=== PATIENT | male | born 1950 | race Caucasian/White ===

== ENCOUNTER 2022-10-09 11:54 | Observation (INO) | payer MEDICARE ==
[2022-10-09] MEDS ORDERED: SODIUM CHLORIDE 0.9% 1,000 ML IV STA (12:28)
--- NOTE | 2022-10-09 12:33 | ED ---
Dizziness HPI - General Chief Complaint: Dizziness Stated Complaint: dizzy Time Seen by Provider: 10/09/22 12:10 Source: patient, family, RN notes reviewed Mode of arrival: ambulatory Limitations: language barrier - History of Present Illness Initial Comments: 72-year-old male with a history of heart disease who is here with his family who act as an certified court/medical interpreter. The patient complains of sudden onset of dizziness around 11 PM today while working at his [employer]. He states is better now but still there somewhat. He also complains of a occipital headache and some neck pain. No trauma reported no fevers chills nausea vomiting sweats no focal weakness. Patient's had no history of previous neurological pathology. Additionally 6 days ago the patient had another episode similar to this which lasted briefly. He also had another episode while sitting in a chair. He did not seem to be related to eye movement overt head movement. At that time also no focal deficits reported. Patient does have a history of glaucoma that is being treated currently. MD Complaint: dizziness, lightheadedness - Related Data Allergies Allergy/AdvReac Type Severity Reaction Status Date / Time No Known Allergies Allergy Verified 10/09/22 12:09 Review of Systems ROS Statement: Those systems with pertinent positive or pertinent negative responses have been documented in the HPI. ROS Other: All systems not noted in ROS Statement are negative. Past Medical History Past Medical History: Coronary Artery Disease (CAD), Diabetes Mellitus History of Any Multi-Drug Resistant Organisms: None Reported Past Surgical History: Orthopedic Surgery Additional Past Surgical History / Comment(s): lt knee, nephrectomy Past Psychological History: No Psychological Hx Reported Smoking Status: Never smoker Past Alcohol Use History: None Reported Past Drug Use History: None Reported General Exam - General Exam Comments Initial Comments: This is a well-developed well-nourished awake alert oriented 4 male Limitations: language barrier General appearance: alert, in no apparent distress Head exam: Present: atraumatic, normocephalic, normal inspection Eye exam: Present: normal appearance, PERRL, EOMI. Absent: scleral icterus, conjunctival injection, periorbital swelling ENT exam: Present: normal exam, mucous membranes moist Neck exam: Present: normal inspection, full ROM, other (No stridor JVD or bruits). Absent: tenderness, meningismus, lymphadenopathy Respiratory exam: Present: normal lung sounds bilaterally. Absent: respiratory distress, wheezes, rales, rhonchi, stridor Cardiovascular Exam: Present: regular rate, normal rhythm, normal heart sounds. Absent: systolic murmur, diastolic murmur, rubs, gallop, clicks GI/Abdominal exam: Present: soft, normal bowel sounds. Absent: distended, tenderness, guarding, rebound, rigid, bruit, pulsatile mass Extremities exam: Present: normal inspection, full ROM, normal capillary refill. Absent: tenderness, pedal edema, joint swelling, calf tenderness Back exam: Present: normal inspection Neurological exam: Present: alert, oriented X3, CN II-XII intact Psychiatric exam: Present: normal affect, normal mood Skin exam: Present: warm, dry, intact, normal color. Absent: rash Course Vital Signs 10/09/22 10/09/22 10/09/22 12:05 13:18 13:20 Temperature 97.9 F 98.2 F Pulse Rate 68 69 69 Respiratory 20 12 16 Rate Blood Pressure 126/76 131/91 O2 Sat by Pulse 99 95 Oximetry 10/09/22 10/09/22 10/09/22 13:30 14:00 14:30 Temperature Pulse Rate 67 67 66 Respiratory 12 16 16 Rate Blood Pressure 131/91 134/82 130/87 O2 Sat by Pulse 95 94 L 95 Oximetry 10/09/22 10/09/22 10/09/22 15:00 15:30 16:00 Temperature Pulse Rate 66 66 64 Respiratory 16 10 L 12 Rate Blood Pressure 120/85 128/87 125/95 O2 Sat by Pulse 96 97 97 Oximetry 10/09/22 16:30 Temperature 98.6 F Pulse Rate 63 Respiratory 12 Rate Blood Pressure 140/106 O2 Sat by Pulse 96 Oximetry EKG Findings - EKG Results: EKG: interpreted by ERMD (EKG interpreted by me normal sinus rhythm a 67 MS interval 209 QRS duration 101 QT/QTC 401/416 areas this is a normal-appearing EKG.) Medical Decision Making - Medical Decision Making I did a long discussion with the patient family regarding findings also Dr. Rey the patient be admitted for evaluation of dizziness. Probably will be consulted.Was pt. sent in by a medical professional or institution (, PA, HANDBAG STITCHER, urgent care, hospital, or long-term...) When possible be specific @ -No Did you speak to anyone other than the patient for history (EMS, parent, family, police, friend...)? What history was obtained from this source @ -Family certified court/medical interpreter Did you review nursing and triage notes (agree or disagree)? Why? @ -I reviewed and agree with nursing and triage notes Were old charts reviewed (outside hosp., previous admission, EMS record, old EKG, old radiological studies, urgent care reports/EKG's, long-term records)? Report findings @ -Previous admission old charts were reviewed Differential Diagnosis (chest pain, altered mental status, abdominal pain women, abdominal pain men, vaginal bleeding, weakness, fever, dyspnea, syncope, headache, dizziness, GI bleed, back pain, seizure, CVA, palpatations, mental health, musculoskeletal)? @ -Dizziness, TIA, stroke, headache EKG interpreted by me (3pts min.). @ -As above X-rays interpreted by me (1pt min.). @ -As above CT interpreted by me (1pt min.). @ -As above U/S interpreted by me (1pt. min.). @ -None done What testing was considered but not performed or refused? (CT, X-rays, U/S, labs)? Why? @ -None What meds were considered but not given or refused? Why? @ -None Did you discuss the management of the patient with other professionals (professionals i.e. , PA, HANDBAG STITCHER, lab, RT, psych nurse, nursing home social worker, computer support specialist instructor, teacher, chief resource officer, rn field case manager)? Give summary @ -Dr. Rey] Was smoking cessation discussed for >3mins.? @ -No Was critical care preformed (if so, how long)? @ -No Were there social determinants of health that impacted care today? How? (Homelessness, low income, unemployed, alcoholism, drug addiction, transport ation, low edu. Level, literacy, decrease access to med. care, shelter, rehab)? @ -No Was there de-escalation of care discussed even if they declined (Discuss DNR or withdrawal of care, Hospice)? DNR status @ -No What co-morbidities impacted this encounter? (DM, HTN, Smoking, COPD, CAD, Cancer, CVA, ARF, Chemo, Hep., AIDS, mental health diagnosis, sleep apnea, morbid obesity)? @ -Diabetes, coronary artery disease, history of nephrectomy Was patient admitted / discharged? Hospital course, mention meds given and route, prescriptions, significant lab abnormalities, going to OR and other pertinent info. @ -hospital course: The patient was admitted for inpatient evaluation treatment of persistent episodic dizziness with neurological consultation to be performed Undiagnosed new problem with uncertain prognosis? @ -No Drug Therapy requiring intensive monitoring for toxicity (Heparin, Nitro, Insulin, Cardizem)? @ -No Were any procedures done? @ -No Diagnosis/symptom? @ -Dizziness Acute, or Chronic, or Acute on Chronic? @ -Acute Uncomplicated (without systemic symptoms) or Complicated (systemic symptoms)? @ -default Side effects of treatment? @ -No Exacerbation, Progression, or Severe Exacerbation? @ -No Poses a threat to life or bodily function? How? (Chest pain, [place], [place], pneumonia, PE, COPD, DKA, ARF, appy, cholecystitis, CVA, Diverticulitis, Homicidal, Suicidal, threat to staff... and all critical care pts) @ -S, dizziness have not fully evaluated - Lab Data Result diagrams: 10/09/22 12:48 10/09/22 12:48 Lab Results 10/09/22 10/09/22 10/09/22 Range/Units 12:48 12:48 12:48 WBC 5.2 (3.8-10.6) k/uL RBC 4.47 (4.30-5.90) m/uL Hgb 14.3 (13.0-17.5) gm/dL Hct 42.0 (39.0-53.0) % MCV 93.9 (80.0-100.0) fL MCH 32.0 (25.0-35.0) pg MCHC 34.1 (31.0-37.0) g/dL RDW 12.4 (11.5-15.5) % Plt Count 114 L (150-450) k/uL MPV 10.6 Neutrophils % 68 % Lymphocytes % 21 % Monocytes % 6 % Eosinophils % 4 % Basophils % 0 % Neutrophils # 3.6 (1.3-7.7) k/uL Lymphocytes # 1.1 (1.0-4.8) k/uL Monocytes # 0.3 (0-1.0) k/uL Eosinophils # 0.2 (0-0.7) k/uL Basophils # 0.0 (0-0.2) k/uL Sodium 139 (137-145) mmol/L Potassium 3.9 (3.5-5.1) mmol/L Chloride 106 (98-107) mmol/L Carbon Dioxide 25 (22-30) mmol/L Anion Gap 8 mmol/L BUN 29 H (9-20) mg/dL Creatinine 1.03 (0.66-1.25) mg/dL Est GFR (CKD-EPI)AfAm 84 (>60 ml/min/1.73 sqM) Est GFR (CKD-EPI)NonAf 73 (>60 ml/min/1.73 sqM) Glucose 121 H (74-99) mg/dL Calcium 8.7 (8.4-10.2) mg/dL Magnesium 1.9 (1.6-2.3) mg/dL Total Bilirubin 0.7 (0.2-1.3) mg/dL AST 24 (17-59) U/L ALT 32 (4-49) U/L Alkaline Phosphatase 56 (38-126) U/L Creatine Kinase 159 (55-170) U/L Troponin I (0.000-0.034) ng/mL Total Protein 7.0 (6.3-8.2) g/dL Albumin 4.1 (3.5-5.0) g/dL TSH 1.100 (0.465-4.680) mIU/L Urine Color Light Yellow Urine Appearance Clear (Clear) Urine pH 5.5 (5.0-8.0) Ur Specific [place] 1.023 (1.001-1.035) Urine Protein Negative (Negative) Urine Glucose (UA) 4+ H (Negative) Urine Ketones Negative (Negative) Urine Blood Negative (Negative) Urine Nitrite Negative (Negative) Urine Bilirubin Negative (Negative) Urine Urobilinogen <2.0 (<2.0) mg/dL Ur Leukocyte Esterase Negative (Negative) 10/09/22 Range/Units 12:48 WBC (3.8-10.6) k/uL RBC (4.30-5.90) m/uL Hgb (13.0-17.5) gm/dL Hct (39.0-53.0) % MCV (80.0-100.0) fL MCH (25.0-35.0) pg MCHC (31.0-37.0) g/dL RDW (11.5-15.5) % Plt Count (150-450) k/uL MPV Neutrophils % % Lymphocytes % % Monocytes % % Eosinophils % % Basophils % % Neutrophils # (1.3-7.7) k/uL Lymphocytes # (1.0-4.8) k/uL Monocytes # (0-1.0) k/uL Eosinophils # (0-0.7) k/uL Basophils # (0-0.2) k/uL Sodium (137-145) mmol/L Potassium (3.5-5.1) mmol/L Chloride (98-107) mmol/L Carbon Dioxide (22-30) mmol/L Anion Gap mmol/L BUN (9-20) mg/dL Creatinine (0.66-1.25) mg/dL Est GFR (CKD-EPI)AfAm (>60 ml/min/1.73 sqM) Est GFR (CKD-EPI)NonAf (>60 ml/min/1.73 sqM) Glucose (74-99) mg/dL Calcium (8.4-10.2) mg/dL Magnesium (1.6-2.3) mg/dL Total Bilirubin (0.2-1.3) mg/dL AST (17-59) U/L ALT (4-49) U/L Alkaline Phosphatase (38-126) U/L Creatine Kinase (55-170) U/L Troponin I <0.012 (0.000-0.034) ng/mL Total Protein (6.3-8.2) g/dL Albumin (3.5-5.0) g/dL TSH (0.465-4.680) mIU/L Urine Color Urine Appearance (Clear) Urine pH (5.0-8.0) Ur Specific [place] (1.001-1.035) Urine Protein (Negative) Urine Glucose (UA) (Negative) Urine Ketones (Negative) Urine Blood (Negative) Urine Nitrite (Negative) Urine Bilirubin (Negative) Urine Urobilinogen (<2.0) mg/dL Ur Leukocyte Esterase (Negative) - Radiology Data Interpreted by me: I did interpret the imaging including CAT scan of the brain and x-rays disease seen. Disposition Clinical Impression: Dizziness Disposition: ADMITTED IP TO THIS [facility] Condition: Stable Referrals: Gabino Rey MD [Primary Care Provider] - 1-2 days Decision Date: 10/09/22 Decision Time: 15:15
[2022-10-09 13:09] LABS: Basophils % (A) 0 %; Eosinophils # (A) 0.2 k/uL (0-0.7); Eosinophils % (A) 4 %; HGB 14.3 gm/dL (13.0-17.5); Lymphocytes # (A) 1.1 k/uL (1.0-4.8); Lymphocytes % (A) 21 %; MCHC 34.1 g/dL (31.0-37.0); MCV 93.9 fL (80.0-100.0); Mean Platelet Volume 10.6; Monocytes # (A) 0.3 k/uL (0-1.0); Monocytes % (A) 6 %; Neutrophils # (A) 3.6 k/uL (1.3-7.7); Neutrophils % (A) 68 %; Platelet Count 114 k/uL (150-450); RBC 4.47 m/uL (4.30-5.90); RDW 12.4 % (11.5-15.5); WBC 5.2 k/uL (3.8-10.6)
[2022-10-09 13:14] LABS: ALT 32 U/L (4-49); AST 24 U/L (17-59); African American GFR (CKD) 84 (>60 ml/min/1.73 sqM); Albumin 4.1 g/dL (3.5-5.0); Alkaline Phosphatase 56 U/L (38-126); Anion Gap 8 mmol/L; Blood Urea Nitrogen 29 mg/dL (9-20); Calcium 8.7 mg/dL (8.4-10.2); Carbon Dioxide 25 mmol/L (22-30); Chloride 106 mmol/L (98-107); Creatine Kinase 159 U/L (55-170); Glucose 121 mg/dL (74-99); Magnesium 1.9 mg/dL (1.6-2.3); Non-African American GFR(CKD) 73 (>60 ml/min/1.73 sqM); Potassium 3.9 mmol/L (3.5-5.1); Sodium 139 mmol/L (137-145); Total Bilirubin 0.7 mg/dL (0.2-1.3)
[2022-10-09 13:46] LABS: Appearance,Urine Clear (Clear); Bilirubin,Urine Negative (Negative); Blood,Urine Negative (Negative); Color,Urine Light Yellow; Glucose,Urine (UA) 4+ (Negative); Ketones,Urine Negative (Negative); Leukocyte Esterase,Urine Negative (Negative); Nitrite,Urine Negative (Negative); PH, Urine 5.5 (5.0-8.0); Protein,Urine Negative (Negative); Specific Gravity,Urine 1.023 (1.001-1.035); Urobilinogen,Urine <2.0 mg/dL (<2.0)
--- NOTE | 2022-10-09 14:11 | XR ---
EXAMINATION TYPE: XR chest 2V DATE OF EXAM: 10/09/2022 COMPARISON: None INDICATION: Dizziness syncope TECHNIQUE: Frontal and lateral views of the chest are obtained. FINDINGS: The heart size is normal. The pulmonary vasculature is normal. The lungs are clear. IMPRESSION: 1. No acute pulmonary process.
--- NOTE | 2022-10-09 14:18 | CT ---
EXAMINATION TYPE: CT brain wo con DATE OF EXAM: 10/09/2022 COMPARISON: None HISTORY: ams CT DLP: 1091.9 mGycm Automated exposure control for dose reduction was used. Ventricles have normal size. There is no mass effect or midline shift. No sign of intracranial hemorr solis. The calvarium is intact. There is normal aeration of the mastoid sinuses. IMPRESSION: Negative unenhanced head CT scan.
[2022-10-09] MEDS ORDERED: ACETAMINOPHEN TAB 325 MG TAB PO PRN (17:11)
[2022-10-09] MEDS: SODIUM CHLORIDE 0.9% 1,000 ML IV SCH (20:19)
[2022-10-09 20:30] LABS: Glucose,Whole Blood 204 mg/dL (70-110)
--- NOTE | 2022-10-09 22:20 | HP ---
HISTORY AND PHYSICAL He was in the emergency room. CHIEF COMPLAINT: Mental status changes and near syncope. HISTORY OF PRESENT ILLNESS: First known admission for this 72-year-old gentleman who has been coming to the office recently. He has mild hypertension. He does not speak Iranian well. He apparently experienced a slight headache and then became presyncopal. He had same type of the pain about a week ago. In the emergency room, all of his studies were negative including his vital signs, CT of the brain, EKG, and blood work. He is admitted for observation. Review of systems, past medical history, family history and personal and social histories are all otherwise unobtainable or unremarkable. He does not smoke. PHYSICAL EXAMINATION: VITAL SIGNS: Blood pressure 165/98 with a pulse of 80, respirations of 26, and he is afebrile. GENERAL: He appeared to be well developed, well nourished, in no acute distress. SKIN: Color is normal. Skin is warm and dry. LYMPHATICS: Lymph nodes are not enlarged. HEENT: Head, ears, eyes, nose, mouth and throat were normal. NECK: Veins not distended. Carotids normal. There are no bruits. CHEST: Clear to auscultation and percussion. CARDIAC: Normal sinus rhythm and no murmurs or extra sounds. ABDOMEN: Slightly protuberant, soft and nontender without any visceromegaly or masses. Bowel sounds are present. EXTREMITIES: Normal. NEUROLOGIC: He is intact. IMPRESSION: 1. Near-syncopal episode, etiology unknown. 2. Hypertension. 3. History of having only 1 kidney. 4. Headache. PLAN: 1. Bedrest. 2. IV fluids. 3. Telemetry. 4. Frequent monitoring of his neurologic status and vital signs. 5. Neurology consult. 6. Consider CTA of the neck and head pending recommendations of Neurology. MMODL / IJN: [id number] /
[2022-10-10 07:56] LABS: Glucose,Whole Blood 77 mg/dL (70-110)
[2022-10-10 08:34] VITALS: RESP 16
[2022-10-10] MEDS ORDERED: NON FORMULARY DRUG (Insulin Glargine/Lixisenatide [Soliqua 100 Unit-33 Mcg/Ml Pen] 3 ML In SQ SCH (09:00)
[2022-10-10] MEDS: METOPROLOL SUCCINATE (ER) 50 MG TAB.ER.24H PO SCH ×2 (09:18→20:40)
[2022-10-10] MEDS: INSULIN DETEMIR (LEVEMIR) 100 UNIT/ML SYR SQ SCH (09:18)
[2022-10-10] MEDS: metFORMIN 500 MG TAB PO SCH (09:18)
[2022-10-10] MEDS: DAPAGLIFLOZIN PROPANEDIOL 10 MG TABLET PO SCH (09:18)
[2022-10-10] MEDS: DILTIAZEM CD 120 MG CAP.ER.24H PO SCH (09:18)
[2022-10-10] MEDS: BRIMONIDINE TARTRATE 0.2% DROPS 5 ML BTL BOTH EYES SCH ×2 (09:19→20:39)
[2022-10-10] MEDS: DORZOLAMIDE HCL 2% DROPS 10 ML BTL BOTH EYES SCH ×2 (09:19→20:39)
[2022-10-10 09:48] LABS: Chol/HDL Ratio 2.93 Ratio; LDL Cholesterol,Calculated 78.6 mg/dL (0.0-131.0)
[2022-10-10 12:43] LABS: Glucose,Whole Blood 103 mg/dL (70-110)
[2022-10-10] MEDS: INSULIN ASPART (NovoLOG) 100 UNIT/ML VIAL SQ SCH ×2 (13:13→17:27)
--- NOTE | 2022-10-10 14:43 | US ---
EXAMINATION TYPE: US carotid duplex BILAT DATE OF EXAM: 10/10/2022 COMPARISON: NONE CLINICAL HISTORY: Syncope TECHNIQUE: Carotid duplex ultrasound examination. Indirect Doppler criteria was utilized. FINDINGS: EXAM MEASUREMENTS: RIGHT: Peak Systolic Velocity (PSV) cm/sec ----- Right CCA: 63.9 ----- Right ICA: 50.3 ----- Right ECA: 50.3 ICA/CCA ratio: 0.8 RIGHT: End Diastole cm/sec ----- Right CCA: 7.0 ----- Right ICA: 12.5 ----- Right ECA: 0.0 LEFT: Peak Systolic Velocity (PSV) cm/sec ----- Left CCA: 68.6 ----- Left ICA: 47.0 ----- Left ECA: 37.0 ICA/CCA ratio: 0.7 LEFT: End Diastole cm/sec ----- Left CCA: 7.4 ----- Left ICA: 10.7 ----- Left ECA: 0.00 VERTEBRALS (direction of flow): Right Vertebral: Antegrade Left Vertebral: Antegrade WEB SITE ADMIN NOTES: No significant stenosis seen IMPRESSION: There is antegrade flow in the vertebral arteries. The images and measurement suggests less than 10% stenosis in both internal carotid arteries. Criteria for Assigning % of Stenosis / Diameter reduction (Estimation based on the indirect measurements of the internal carotid artery velocities (ICA PSV). 1. Normal (no stenosis)=ICA PSV < 125 cm/s: ratio < 2.0: ICA EDV<40 cm/s. 2. Less than 50% stenosis=ICA PSV < 125 cm/s: ratio < 2.0: ICA EDV<40 cm/s. 3. 50 to 69% stenosis=ICA PSV of 125 to 230 cm/s: ration 2.0 ? 4.0: ICA EDV 40-100 cm/s. 4. Greater than 70% stenosis to near occlusion= ICA PSV > 230 cm/s: ratio > 4.0: ICA EDV > 100 cm/s. 5. Near occlusion= ICA PSV velocities may be low or undetectable: variable ratio and ICA EDV. 6. Total occlusion=unable to detect flow.
--- NOTE | 2022-10-10 15:00 | P.CNNES ---
History of Present Illness Consult date: 10/10/22 Requesting physician: Win Bone Reason for Consult: Dizziness History of Present Illness: Patient is a 72-year-old male came to the hospital yesterday at 11:54 AM for episodes of dizziness. Patient states that yesterday at 11 AM he was laying in the bed, looking at his cell phone when he felt dizzy which lasted for just a couple seconds. Patient states that last Tuesday, one week ago at 8 AM he was bending down trying to plug his monitor when he became dizzy again lasting for a few seconds. The same day at 2 PM while sitting and watching TV, he had a similar dizzy spell. For the whole week since last Tuesday, he has been feeling little dizzy, but not all the time. He does not have to change his head or body position to be dizzy. He denies vertigo. Patient states that 2 or 3 years ago he had a very transient dizzy spell just like this, but it occurred only once and lasted for "one second". No other episodes of dizziness since then. Patient admits to mild hearing loss but denies any ear pain, tinnitus any pressure in the ears any recent flu or upper respiratory symptoms. Vital signs on arrival blood pressure 126/76, pulse is 68 temperature 97.9. Blood test shows normal CBC, CMP, troponin, CK, TSH, lipid panel with cholesterol 154, LDL 78, UA negative. CT head was reported as negative. I personally reviewed CT head, and there is evidence of an old lacune in the left frontal semiovale region. Visualized paranasal sinuses are clear. External auditory canal is clear on the left, but appears to have some wax buildup on the right. Chest x-ray and EKG are reported as normal. Patient has history of diabetes, also has glaucoma with diabetic retinopathy. Denies any tobacco or alcohol use. Patient denies vertigo or spinning, he feels like "in a shock". Denies palpitations. Review of Systems Constitutional: Denies chills, Denies fever Eyes: bilateral as per HPI (Patient has diabetic retinopathy. Some problem with the vision in the left eye.), denies diplopia, denies pain Ears: bilateral: decreased hearing, deny: ear discharge, earache, tinnitus Ears, nose, mouth and throat: Denies headache, Denies sore throat Cardiovascular: Denies chest pain, Denies shortness of breath Respiratory: Denies cough, Denies excessive sputum Gastrointestinal: Denies abdominal pain, Denies diarrhea, Denies nausea, Denies vomiting Musculoskeletal: Denies gait dysfunction, Denies myalgias Integumentary: Denies pruritus, Denies rash Neurological: Reports as per HPI Psychiatric: Denies anxiety, Denies depression Endocrine: Denies fatigue, Denies weight change Past Medical History Past Medical History: Coronary Artery Disease (CAD), Diabetes Mellitus History of Any Multi-Drug Resistant Organisms: None Reported Past Surgical History: Orthopedic Surgery Additional Past Surgical History / Comment(s): lt knee, nephrectomy left side Past Anesthesia/Blood Transfusion Reactions: No Reported Reaction Past Psychological History: No Psychological Hx Reported Smoking Status: Never smoker Past Alcohol Use History: None Reported Past Drug Use History: None Reported Medications and Allergies Home Medications Medication Instructions Recorded Confirmed Type Atorvastatin [Lipitor] 40 mg PO HS 10/09/22 10/09/22 History Brimonidine Tartrate [Alphagan P 1 drop BOTH EYES BID 10/09/22 10/09/22 History 0.15% Ophth Soln] Diltiazem Cd [Cardizem CD] 120 mg PO DAILY 10/09/22 10/09/22 History Dorzolamide 2% [Trusopt 2%] 1 drop BOTH EYES BID 10/09/22 10/09/22 History Empagliflozin [Jardiance] 25 mg PO DAILY 10/09/22 10/09/22 History Insulin Aspart [Insulin Aspart 10 unit SQ AC-TID 10/09/22 10/09/22 History Flexpen] Insulin Glargine/Lixisenatide 40 units SQ DAILY 10/09/22 10/09/22 History [Soliqua 100 Unit-33 Mcg/ml Pen] Ketoconazole 2% Cream [Nizoral 2%] 1 applic TOPICAL DAILY PRN 10/09/22 10/09/22 History Latanoprost [Latanoprost 0.005%] 1 drop BOTH EYES HS 10/09/22 10/09/22 History Losartan Potassium 100 mg PO HS 10/09/22 10/09/22 History Metoclopramide [Reglan] 5 mg PO HS 10/09/22 10/09/22 History Metoprolol Succinate [Toprol XL] 50 mg PO BID 10/09/22 10/09/22 History Pantoprazole [Protonix] 40 mg PO HS 10/09/22 10/09/22 History Rivaroxaban [Xarelto] 20 mg PO HS 10/09/22 10/09/22 History Timolol 0.5% Ophth Soln [Timoptic 1 drop BOTH EYES BID 10/09/22 10/09/22 History 0.5% Ophth Soln] metFORMIN HCL 1,000 mg PO DAILY 10/09/22 10/09/22 History traZODone HCL [Desyrel] 50 mg PO HS 10/09/22 10/09/22 History Allergies Allergy/AdvReac Type Severity Reaction Status Date / Time No Known Allergies Allergy Verified 10/09/22 17:43 Physical Examination - Vital Signs Vital Signs: Vital Signs Temp Pulse Pulse Resp BP BP Pulse Ox 10/10/22 10:16 95 10/10/22 07:00 98.0 F 60 16 157/84 96 10/10/22 02:00 97.6 F 59 L 18 158/85 98 10/09/22 19:23 97.8 F 66 16 153/81 95 10/09/22 19:00 98.2 F 67 153/85 96 10/09/22 17:35 61 18 143/96 95 10/09/22 16:30 98.6 F 63 16 140/106 96 10/09/22 16:00 64 16 125/95 97 10/09/22 15:30 66 16 128/87 97 10/09/22 15:00 66 16 120/85 96 10/09/22 14:30 66 16 130/87 95 10/09/22 14:00 67 16 134/82 94 L 10/09/22 13:30 67 16 131/91 95 10/09/22 13:20 98.2 F 69 16 131/91 95 10/09/22 13:18 69 16 Intake and Output 10/09/22 10/10/22 10/10/22 22:59 06:59 14:59 Output Total 700 Balance -700 Output: Urine 700 Other: Voiding Method Toilet Toilet Toilet Urinal Urinal Urinal # Voids 1 1 Weight 90.718 kg Patient is an elderly male, very pleasant, in no acute distress. Patient is alert awake oriented to time place and person. Speech and language functions are normal. Patient can name and repeat very well. No aphasia or dysarthria. Attention, concentration and fund of knowledge is adequate. On cranial nerve examination, pupils are equal, round and reacting to light, visual elliott are full on confrontation, with no neglect on double simultaneous stimulation. Extraocular muscles are intact with no nystagmus. Face is symmetric, tongue protrudes to the midline. Palatal elevation and sensation normal, hearing is severely decreased for finger rubbing, but mildly decreased for routine conversation. His shoulder shrug normal, facial sensation normal. On neurologic examination was performed and the eardrums appeared well bilaterally, with no excessive wax or inflammation. On muscle strength testing, there is no pronator drift and the strength is normal in arms and legs distally and proximally. Deep tendon reflexes are symmetric but diminished and plantars downgoing bilaterally. Sensory to touch is equal with no neglect on double simultaneous stimulation. Cerebellar function showed no ataxia for [id number] testing. No dysdiadochokinesia. No ataxia for [id number] testing on either side. Tone and bulk of muscles normal. Gait deferred.. On general examination, there is no carotid bruit or murmur, S1-S2 audible. Chest is clear on consultation. Abdomen is soft nontender. No organomegaly, bowel sounds present. Peripheral pulses are present. No edema. Results - Laboratory Findings CBC and BMP: 10/09/22 12:48 10/09/22 12:48 Abnormal Lab Findings: Abnormal Labs 10/09/22 10/09/22 10/09/22 12:48 12:48 12:48 Plt Count 114 L BUN 29 H Glucose 121 H POC Glucose (mg/dL) Urine Glucose (UA) 4+ H 10/09/22 20:27 Plt Count BUN Glucose POC Glucose (mg/dL) 204 H Urine Glucose (UA) Assessment and Plan Assessment: * Recurrent episodes (4-5 total) of dizziness (not vertigo), lasting for 1-2 seconds. Examination significant for decreased hearing for finger rubbing bilaterally, otherwise nonfocal. Exact cause is uncertain, suspect peripheral vestibular dysfunction. Rule out vascular cause. * Diabetes * CAD * Hamida did retinopathy Plan: * Carotid Doppler * 2-D echo * B12, folate * Patient had a 48-hour Holter monitoring performed for palpitations from 08/26/2022 to 08/28/2022, which only revealed normal sinus rhythm, rare PACs, PVCs. 3 patient activated events corresponding with sinus rhythm. * If above testing comes back normal, then recommend follow-up with ENT specialist as an outpatient. * Patient does have an appointment with Dr. Moralez (neurologist) on 10/12/2022. * Dr. Delano Beckham will resume neurology service in the morning. * Thank you for the consult.
[2022-10-10] MEDS: SODIUM CHLORIDE 0.9% 1,000 ML IV SCH (16:08)
[2022-10-10 17:33] LABS: Glucose,Whole Blood 121 mg/dL (70-110)
[2022-10-10 20:23] LABS: Glucose,Whole Blood 200 mg/dL (70-110)
[2022-10-10] MEDS: TIMOLOL 0.5% OPHTH DROPS 5 ML BTL BOTH EYES SCH (20:39)
[2022-10-10] MEDS ORDERED: LATANOPROST 0.005% OPHTH DROPS 2.5 ML BTL BOTH EYES SCH (21:00)
[2022-10-10] MEDS ORDERED: ATORVASTATIN 40 MG TAB PO SCH (21:00)
[2022-10-10] MEDS ORDERED: RIVAROXABAN 20 MG TAB PO SCH (21:00)
[2022-10-10] MEDS ORDERED: METOCLOPRAMIDE 5 MG TAB PO SCH (21:00)
[2022-10-10] MEDS ORDERED: LOSARTAN 50 MG TAB PO SCH (21:00)
[2022-10-10] MEDS ORDERED: PANTOPRAZOLE 40 MG TABLET PO SCH (21:00)
--- NOTE | 2022-10-11 05:00 | PN ---
PROGRESS NOTE CHIEF COMPLAINT: Syncopal episode. HISTORY OF PRESENT ILLNESS: This gentleman seems to be doing fairly well. He still has a slight headache, but it has improved. He has not been seen by Neurology. He has been in sinus rhythm. Blood pressure elevated slightly, but his home medications were restarted. PHYSICAL EXAMINATION: CHEST: Clear. CARDIAC: Normal. ABDOMEN: Soft, nontender. IMPRESSION: 1. Syncopal episodes. 2. Hypertension. 3. Type 2 diabetes. PLAN: 1. Put patient on telemetry. 2. Carotid duplex imaging. 3. Echocardiogram. 4. Neurology consult. MMODL / IJN: [id number] /
[2022-10-11 05:34] LABS: Glucose,Whole Blood 81 mg/dL (70-110)
[2022-10-11] MEDS: INSULIN ASPART (NovoLOG) 100 UNIT/ML VIAL SQ SCH ×2 (05:34→12:34)
[2022-10-11] MEDS: INSULIN DETEMIR (LEVEMIR) 100 UNIT/ML SYR SQ SCH (05:34)
[2022-10-11 08:53] VITALS: BP 138/78; PULSE 56; TEMP 98.1
[2022-10-11] MEDS: metFORMIN 500 MG TAB PO SCH (08:56)
[2022-10-11] MEDS: DAPAGLIFLOZIN PROPANEDIOL 10 MG TABLET PO SCH (08:56)
[2022-10-11] MEDS: METOPROLOL SUCCINATE (ER) 50 MG TAB.ER.24H PO SCH (08:56)
[2022-10-11] MEDS: DILTIAZEM CD 120 MG CAP.ER.24H PO SCH (08:56)
[2022-10-11] MEDS: TIMOLOL 0.5% OPHTH DROPS 5 ML BTL BOTH EYES SCH (09:01)
[2022-10-11] MEDS: DORZOLAMIDE HCL 2% DROPS 10 ML BTL BOTH EYES SCH (09:02)
[2022-10-11] MEDS: BRIMONIDINE TARTRATE 0.2% DROPS 5 ML BTL BOTH EYES SCH (09:02)
--- NOTE | 2022-10-11 11:04 | P.PN ---
Subjective Progress Note Date: 10/11/22 I'm seeing the patient for the first time during this hospital visit. There is a somewhat of a language barrier since he states that the his dizziness is better today compared to yesterday. He denies of weakness, vomiting. Please refer to Dr. Hill's notes for further details. Objective - Vital Signs Vital signs: Vital Signs Temp 98.1 F 10/11/22 07:00 Pulse 56 L 10/11/22 07:00 Resp 16 10/11/22 07:00 BP 138/78 10/11/22 07:00 Pulse Ox 97 10/11/22 07:58 FiO2 21 10/11/22 07:58 Intake & Output 10/10/22 10/11/22 10/11/22 18:59 06:59 18:59 Intake Total 240 118 Output Total 600 Balance 240 -600 118 Intake: Oral 240 118 Output: Urine 600 Other: Voiding Method Toilet Toilet Urinal Urinal # Voids 2 - Exam GENERAL: The patient is lying in bed and is not in acute distress. NEUROLOGICAL: Somewhat limited because of language barrier. Higher mental function: The patient is awake, alert, oriented to self, place and time. Patient is following simple commands. Cranial nerves: The pupils are round, equal and reactive to light. Visual elliott are full to confrontation throughout. Extraocular movement is intact no nystagmus is noted. F The facial strength is normal throughout. Tongue is midline and moved [id number] without any difficulty. No dysarthria is noted. Shoulder shrug is normal bilaterally. Motor: Gait is normal. The strength is 5 over 5 throughout. Normal tone and bulk. Cerebellum: Normal finger to nose bilaterally. Sensation: Sensation is normal to touch throughout. - Labs CBC & Chem 7: 10/09/22 12:48 10/09/22 12:48 Labs: Abnormal Lab Results - Last 24 Hours (Table) 10/09/22 10/10/22 10/10/22 Range/Units 12:48 17:19 20:21 POC Glucose (mg/dL) 121 H 200 H (70-110) mg/dL Folate 31.10 H (4.40-31.00) ng/mL Assessment and Plan Assessment: * Recurrent episodes (4-5 total) of dizziness (not vertigo), lasting for 1-2 seconds. Examination significant for decreased hearing for finger rubbing bilaterally, otherwise nonfocal. Exact cause is uncertain, suspect peripheral vestibular dysfunction. * Diabetes * CAD * Hamida did retinopathy Plan: * Carotid Doppler: Is reported as there is antegrade flow in the vertebral arteries. The images and measurements suggest less than 10% stenosis in both internal carotid arteries. * 2-D echo: pending. * B12 907, folate 31.1 * Patient had a 48-hour Holter monitoring performed for palpitations from 08/26/2022 to 08/28/2022, which only revealed normal sinus rhythm, rare PACs, PVCs. 3 patient activated events corresponding with sinus rhythm. * If above testing comes back normal, then recommend follow-up with ENT specialist as an outpatient. * Patient does have an appointment with Dr. Moralez (neurologist) on 10/12/2022. Clinically he feels he is doing well. Otherwise, no additional neurological work-up is needed. The plan is discussed with patient and his nurse. Time with Patient: Less than 30
[2022-10-11 11:35] LABS: Glucose,Whole Blood 198 mg/dL (70-110)
--- NOTE | 2022-10-11 13:09 | CA ---
Transthoracic Echo Report Name: Honorio Stewart Age: 72 Gender: M : 1950 Exam Date: 10/11/2022 10:49 Exam Location: [facility] Ht (in): 70 Wt (lb): 200 Ordering Physician: Nadine Hill MD Attending/Referring Phys: Sales Associate Cashier Marshal Doherty RDCS Procedure CPT: Indications: Dizzy spells Cardiac Hx: Technical Quality: Fair Contrast 1: Total Dose (mL): Contrast 2: Total Dose (mL): MEASUREMENTS (Male / Female) Normal Values 2D ECHO LV Diastolic Diameter PLAX 4.6 cm 4.2 - 5.9 / 3.9 - 5.3 cm LV Systolic Diameter PLAX 2.7 cm LV Fractional Shortening PLAX 40.7 % IVS Diastolic Thickness 1.3 cm 0.6 - 1.0 / 0.6 - 0.9 cm IVS Systolic Thickness 1.9 cm LVPW Diastolic Thickness 1.4 cm 0.6 - 1.0 / 0.6 - 0.9 cm LVPW Systolic Thickness 1.8 cm LV Relative Wall Thickness 0.6 RV Internal Dim ED PLAX 2.9 cm LVOT Diameter 2.4 cm LA Systolic Diameter LX 3.8 cm 3.0 - 4.0 / 2.7 - 3.8 cm MV Area Planimetry 13.6 cm??? LV Diastolic Volume MOD BP 107.3 cm??? 67 - 155 / 56 - 104 cm??? LV Systolic Volume MOD BP 40.0 cm??? 22 - 58 / 19 - 49 cm??? LV Ejection Fraction MOD BP 62.7 % >= 55 % LV Stroke Volume MOD BP 67.3 cm??? LV Diastolic Volume MOD 4C 102.1 cm??? LV Systolic Volume MOD 4C 39.2 cm??? LV Ejection Fraction MOD 4C 61.6 % LV Stroke Volume MOD 4C 62.9 cm??? LV Diastolic Length 4C 8.1 cm LV Systolic Length 4C 7.1 cm LV Diastolic Volume MOD 2C 106.6 cm??? LV Systolic Volume MOD 2C 40.9 cm??? LV Ejection Fraction MOD 2C 61.6 % LV Stroke Volume MOD 2C 65.7 cm??? LV Diastolic Length 2C 8.6 cm LV Systolic Length 2C 7.1 cm Ascending Aorta Diameter 3.0 cm M-MODE Aortic Root Diameter MM 3.3 cm LA Systolic Diameter MM 4.1 cm LA Ao Ratio MM 1.3 MV E Point Septal Separation 1.0 cm AV Cusp Separation MM 1.8 cm DOPPLER AV Peak Velocity 85.9 cm/s AV Peak Gradient 3.0 mmHg MV Deceleration [place] 171.3 cm/s??? Mitral E Point Velocity 60.4 cm/s Mitral A Point Velocity 58.4 cm/s Mitral E to A Ratio 1.0 MV Deceleration Time 352.4 ms MV E' Velocity 4.9 cm/s Mitral E to MV E' Ratio 12.4 TR Peak Velocity 225.3 cm/s TR Peak Gradient 20.3 mmHg Right Ventricular Systolic Press 28.3 mmHg PV Peak Velocity 79.2 cm/s PV Peak Gradient 2.5 mmHg RVOT Diameter 2.9 cm FINDINGS Left Ventricle Left ventricular ejection fraction is estimated at 60-65 %. Mild concentric left ventricular hypertrophy. Grade 2 diastolic dysfunction. Normal basal systolic function. Right Ventricle Normal right ventricular size and function. RVSP- 28 mm Hg. Right Atrium Mild right atrial dilatation. Left Atrium Normal left atrial size. Mitral Valve Mitral valve thickened. Aortic Valve Trileaflet aortic valve. Diffuse thickening (sclerosis) of the aortic valve cusps without reduced excursion. Tricuspid Valve Mild tricuspid regurgitation. Pulmonic Valve Structurally normal pulmonic valve. Pericardium Normal pericardium. No pericardial effusion. Aorta Normal size aortic root and proximal ascending aorta. CONCLUSIONS Left ventricular ejection fraction 60-65% Mild LVH Mild tricuspid regurgitation No pericardial effusion Previewed by: Dr. Steven Carrillo DO (Electronically Signed) Final Date: 11 October 2022 13:08
--- NOTE | 2022-10-12 07:36 | DS ---
DISCHARGE SUMMARY CHIEF COMPLAINT: Syncopal episode. HISTORY OF PRESENT ILLNESS AND PHYSICAL EXAM: Details of this man's history and physical can be found in the initial workup. LABORATORY STUDIES: While he was in the hospital, he had laboratory studies, details of which can be found in the laboratory section of his chart. COURSE IN THE HOSPITAL: After admission, he was placed on bedrest, started on intravenous fluid and telemetry. His blood pressure eden slightly, but then he was placed back on his usual home medications and they came under good control. While he was in the hospital, he had no chest pain, arrhythmias, neurologic deficits, etc. He had no further dizziness. Carotid studies were ordered as well as an echocardiogram. Carotid report was back and was normal. He is doing well. It was felt that he could be discharged on the and he will go home on his usual activity and regular diet. His medications will be the same. He will be seen in the office in several days. If he has any further signs or symptoms of dizziness or syncope, we will extend his workup. FINAL DIAGNOSES: 1. Near-syncope with dizziness, etiology unknown. 2. Hypertension. 3. Diabetes mellitus. OPERATIONS: None. CONSULTATION: None. He is improved. MMODL / IJN: [id number] /
== END 2022-10-11 12:56 | disposition home or self-care (01) ==
LOC: EC 11:54 → 6NMEDSUR 16:58
PROVIDERS: ADMIT Family Medicine; ATTEND Family Medicine
DX: R55 Syncope and collapse (principal); I10 Essential (primary) hypertension; E11.39 Type 2 diabetes mellitus with other diabetic ophthalmic complication; H42 Glaucoma in diseases classified elsewhere; E11.319 Type 2 diabetes mellitus with unspecified diabetic retinopathy without macular edema; I25.10 Atherosclerotic heart disease of native coronary artery without angina pectoris; I07.1 Rheumatic tricuspid insufficiency; Z90.5 Acquired absence of kidney; Z79.899 Other long term (current) drug therapy; Z79.84 Long term (current) use of oral hypoglycemic drugs; Z79.4 Long term (current) use of insulin; Z79.01 Long term (current) use of anticoagulants
CPT/HCPCS: 99285; 36415; 94760 ×2; 93005; 93306; 97161; 80061; 80053; 84443; 82607; 82550; 82746; 83735; 84484; 85025; 81003; 71046; 93880; 70450; G0378 ×3

== ENCOUNTER → 2022-11-18 | Outpatient (CLI) | payer MEDICARE ==
--- NOTE | 2022-11-18 15:23 | CT ---
EXAMINATION TYPE: CT angio head neck CT DLP: 1526 mGycm, Automated exposure control for dose reduction was used. DATE OF EXAM: 11/18/2022 2:47 PM COMPARISON: Ultrasound 10/10/2022. CLINICAL INDICATION:Male, 72 years old with history of R55 SYNCOPE AND COLLAPSE R42 DIZZINESS AND GID DINE; TECHNIQUE: Axially acquired helical CT angiogram of the head and neck was obtained with contrast. Axi al images are supplemented with 3D reconstructions [facility] criteria used. Contrast used: 65 cc of Isovue-370 Oral contrast used: None. FINDINGS: CTA HEAD: No evidence of acute intracranial hemorrhage, mass effect, or midline shift. The ventricles, sulci, a nd cisterns are unremarkable. The visualized portions of the internal carotid arteries, middle cerebral arteries, anterior cerebral arteries, and posterior cerebral arteries are patent. The basilar and vertebral arteries are patent. CTA NECK: Right Carotid System: The common carotid artery and external carotid artery are patent. The carotid bifurcation demonstrate s no evidence of hemodynamically significant stenosis. The remaining portions of the internal carotid artery demonstrate normal size without significant narrowing. Left Carotid System: The common carotid artery and external carotid artery are patent. The carotid bifurcation demonstrate s no evidence of hemodynamically significant stenosis. The remaining portions of the internal carotid artery demonstrate normal size without significant narrowing. Vertebral arteries are patent without evidence hemodynamically significant stenosis. There is a three-vessel aortic arch. The origins of the great vessels are patent. No evidence of hemo dynamically significant stenosis. IMPRESSION: 1. No evidence of dissection of the cervical internal carotid arteries or vertebral arteries or any e vidence of significant stenosis at the carotid bifurcations. 2. No evidence of intracranial high-grade stenosis or intracranial aneurysm.
== END | disposition home or self-care (01) ==
LOC: RADCTMAIN 13:01
PROVIDERS: ATTEND Family Medicine
DX: R55 Syncope and collapse (principal); R42 Dizziness and giddiness
CPT/HCPCS: 82565; 84520; 70496; 70498; 36415; Q9967

== ENCOUNTER 2023-01-23 23:01 | Inpatient (IN) | payer MEDICARE ==
[2023-01-23 23:10] VITALS: TEMP 98.2
[2023-01-23] MEDS ORDERED: DILTIAZEM DRIP BOLUS FROM BAG 1 MG SOLN IV ONE (23:36)
[2023-01-23 23:47] LABS: Basophils % (A) 0 %; Eosinophils # (A) 0.2 k/uL (0-0.7); Eosinophils % (A) 4 %; HCT 42.6 % (39.0-53.0); HGB 13.8 gm/dL (13.0-17.5); Lymphocytes # (A) 1.5 k/uL (1.0-4.8); Lymphocytes % (A) 24 %; MCH 31.4 pg (25.0-35.0); MCHC 32.4 g/dL (31.0-37.0); MCV 96.9 fL (80.0-100.0); Mean Platelet Volume 10.7; Monocytes # (A) 0.4 k/uL (0-1.0); Monocytes % (A) 6 %; Neutrophils # (A) 3.8 k/uL (1.3-7.7); Neutrophils % (A) 63 %; Platelet Count 100 k/uL (150-450); RDW 12.7 % (11.5-15.5)
--- NOTE | 2023-01-23 23:57 | XR ---
EXAM: XR Chest, 1 View CLINICAL HISTORY: Dysrhythmia TECHNIQUE: Frontal view of the chest. COMPARISON: 10/09/2022 FINDINGS: Lungs: No focal consolidation. The pulmonary vasculature demonstrates no significant radiographic abnormality. Pleural space: Unremarkable. No pneumothorax. No large pleural effusion. Heart: Unremarkable. No cardiomegaly. Mediastinum: The mediastinal contours are stable with the prominent hilar structures presumed vascular. The trachea is midline. Bones/joints: Hypertrophic osteophyte changes noted involving the thoracic spine. No acute osseous abnormality. IMPRESSION: No acute cardiopulmonary process or significant alteration from the previous examination.
[2023-01-24] LABS: INR 1.2 (<1.2); Partial Thromboplastin Time 33.7 sec (22.0-30.0); Prothrombin Time 12.3 sec (9.0-12.0)
[2023-01-24] MEDS ORDERED: DILTIAZEM 125 MG in SODIUM CHLORIDE 0.9% 100 ML IV SCH ×2
[2023-01-24 00:01] LABS: ALT 35 U/L (4-49); AST 31 U/L (17-59); African American GFR (CKD) 75 (>60 ml/min/1.73 sqM); Albumin 3.9 g/dL (3.5-5.0); Alkaline Phosphatase 62 U/L (38-126); Anion Gap 10 mmol/L; Blood Urea Nitrogen 36 mg/dL (9-20); Calcium 8.7 mg/dL (8.4-10.2); Carbon Dioxide 20 mmol/L (22-30); Chloride 105 mmol/L (98-107); Glucose 257 mg/dL (74-99); Magnesium 1.8 mg/dL (1.6-2.3); Non-African American GFR(CKD) 65 (>60 ml/min/1.73 sqM); Sodium 135 mmol/L (137-145); Total Bilirubin 0.4 mg/dL (0.2-1.3); Total Protein 6.7 g/dL (6.3-8.2)
[2023-01-24] MEDS ORDERED: INSULIN REGULAR 100 UNIT/ML VIAL (IV) SQ STA (00:43)
[2023-01-24] MEDS ORDERED: NITROGLYCERIN SL TABS 0.4 MG TAB SUBLINGUAL PRN (00:44)
[2023-01-24] MEDS ORDERED: SODIUM CHLORIDE 0.9% 1,000 ML IV SCH (00:45)
--- NOTE | 2023-01-24 01:54 | ED ---
Arrhythmia/Palpitations HPI - General Chief Complaint: Arrhythmia/Palpitations Stated Complaint: Tachycardia Time Seen by Provider: 01/23/23 23:36 Source: patient Mode of arrival: ambulatory Limitations: language barrier - History of Present Illness Initial Comments: This patient is 72-year-old man who presents to have evaluation for rapid heartbeat. The patient gives history which is aided by his son has primary language is Vincentian. The patient does appear to have fair grasp of Marshallese. He is denying chest pain, diaphoresis, dyspnea. No nausea or vomiting. Patient denies history of atrial fibrillation and I do not find past record of atrial fibrillation however he does take Xarelto. Complaint: rapid heart beat Onset/Timin -: hour(s) Context: occurred during rest Associated Symptoms: denies other symptoms - Related Data Home Medications Medication Instructions Recorded Confirmed Atorvastatin [Lipitor] 40 mg PO HS 10/09/22 01/24/23 Brimonidine Tartrate [Alphagan P 1 drop BOTH EYES BID 10/09/22 01/24/23 0.15% Ophth Soln] Diltiazem Cd [Cardizem CD] 120 mg PO DAILY 10/09/22 01/24/23 Dorzolamide 2% [Trusopt 2%] 1 drop BOTH EYES BID 10/09/22 01/24/23 Empagliflozin [Jardiance] 25 mg PO DAILY 10/09/22 01/24/23 Insulin Aspart [Insulin Aspart 10 unit SQ AC-TID 10/09/22 01/24/23 Flexpen] Insulin Glargine/Lixisenatide 40 units SQ DAILY 10/09/22 01/24/23 [Soliqua 100 Unit-33 Mcg/ml Pen] Ketoconazole 2% Cream [Nizoral 2%] 1 applic TOPICAL DAILY PRN 10/09/22 01/24/23 Latanoprost [Latanoprost 0.005%] 1 drop BOTH EYES HS 10/09/22 01/24/23 Metoclopramide [Reglan] 5 mg PO HS 10/09/22 01/24/23 Pantoprazole [Protonix] 40 mg PO HS 10/09/22 01/24/23 Rivaroxaban [Xarelto] 20 mg PO HS 10/09/22 01/24/23 Timolol 0.5% Ophth Soln [Timoptic 1 drop BOTH EYES BID 10/09/22 01/24/23 0.5% Ophth Soln] metFORMIN HCL 1,000 mg PO DAILY 10/09/22 01/24/23 traZODone HCL [Desyrel] 50 mg PO HS 10/09/22 01/24/23 Hydrocortisone Cream 1 applic TOPICAL QID 01/24/23 01/24/23 [Hydrocortisone 2.5% Cream] Losartan [Cozaar] 50 mg PO HS 01/24/23 01/24/23 Metoprolol Succinate (ER) [Toprol 25 mg PO DAILY 01/24/23 01/24/23 Xl] Allergies Allergy/AdvReac Type Severity Reaction Status Date / Time No Known Allergies Allergy Verified 01/24/23 08:40 Review of Systems ROS Statement: Those systems with pertinent positive or pertinent negative responses have been documented in the HPI. ROS Other: All systems not noted in ROS Statement are negative. Constitutional: Denies: fever, weakness Respiratory: Denies: cough, dyspnea Cardiovascular: Reports: palpitations. Denies: chest pain, orthopnea, syncope Gastrointestinal: Denies: abdominal pain, nausea, vomiting Musculoskeletal: Denies: back pain Skin: Denies: rash Neurological: Denies: headache, weakness Past Medical History Past Medical History: Coronary Artery Disease (CAD), Diabetes Mellitus History of Any Multi-Drug Resistant Organisms: None Reported Past Surgical History: Orthopedic Surgery Additional Past Surgical History / Comment(s): lt knee, nephrectomy left side Past Anesthesia/Blood Transfusion Reactions: No Reported Reaction Past Psychological History: No Psychological Hx Reported Smoking Status: Never smoker Past Alcohol Use History: None Reported Past Drug Use History: None Reported General Exam Limitations: language barrier General appearance: alert, in no apparent distress Head exam: Present: atraumatic, normocephalic Eye exam: Present: normal appearance. Absent: scleral icterus, conjunctival injection Neck exam: Present: normal inspection Respiratory exam: Present: normal lung sounds bilaterally. Absent: respiratory distress, wheezes, rales, rhonchi, stridor, accessory muscle use Cardiovascular Exam: Present: tachycardia, irregular rhythm, normal heart sounds. Absent: systolic murmur, diastolic murmur, rubs, gallop GI/Abdominal exam: Present: soft. Absent: distended, tenderness, guarding, rebound, rigid, mass Extremities exam: Present: normal inspection, normal capillary refill. Absent: pedal edema, calf tenderness Back exam: Present: normal inspection. Absent: CVA tenderness (R), CVA tenderness (L) Neurological exam: Present: alert Skin exam: Present: warm, dry, intact, normal color. Absent: rash Course Vital Signs 01/23/23 01/24/23 01/24/23 23:05 01:09 03:02 Temperature 98.2 F Pulse Rate 76 84 67 Respiratory 18 18 18 Rate Blood Pressure 113/71 97/69 112/67 O2 Sat by Pulse 97 97 95 Oximetry 01/24/23 01/24/23 04:31 06:49 Temperature Pulse Rate 65 76 Respiratory 18 18 Rate Blood Pressure 103/65 103/61 O2 Sat by Pulse 95 96 Oximetry EKG Findings - EKG Results: EKG: interpreted by KAL, normal axis, normal QRS, normal ST/T EKG shows: atrial fibrillation Medical Decision Making - Medical Decision Making This 72-year-old man presenting with palpitations and found to have atrial fibrillation with rapid ventricular rate. The patient had rate control with Cardizem IV. Surgical the records does not show previous atrial fibrillation though suspect that there had been history of this prior area the patient takes Xarelto for anticoagulation. Case discussed with admitting physician and patient will have cardiology consultation. - Lab Data Result diagrams: 01/23/23 23:39 01/23/23 23:39 Lab Results 01/23/23 01/23/23 01/23/23 Range/Units 23:39 23:39 23:39 WBC 6.0 (3.8-10.6) k/uL RBC 4.40 (4.30-5.90) m/uL Hgb 13.8 (13.0-17.5) gm/dL Hct 42.6 (39.0-53.0) % MCV 96.9 (80.0-100.0) fL MCH 31.4 (25.0-35.0) pg MCHC 32.4 (31.0-37.0) g/dL RDW 12.7 (11.5-15.5) % Plt Count 100 L (150-450) k/uL MPV 10.7 Neutrophils % 63 % Lymphocytes % 24 % Monocytes % 6 % Eosinophils % 4 % Basophils % 0 % Neutrophils # 3.8 (1.3-7.7) k/uL Lymphocytes # 1.5 (1.0-4.8) k/uL Monocytes # 0.4 (0-1.0) k/uL Eosinophils # 0.2 (0-0.7) k/uL Basophils # 0.0 (0-0.2) k/uL PT 12.3 H (9.0-12.0) sec INR 1.2 H (<1.2) APTT 33.7 H (22.0-30.0) sec Sodium 135 L (137-145) mmol/L Potassium 4.0 (3.5-5.1) mmol/L Chloride 105 (98-107) mmol/L Carbon Dioxide 20 L (22-30) mmol/L Anion Gap 10 mmol/L BUN 36 H (9-20) mg/dL Creatinine 1.14 (0.66-1.25) mg/dL Est GFR (CKD-EPI)AfAm 75 (>60 ml/min/1.73 sqM) Est GFR (CKD-EPI)NonAf 65 (>60 ml/min/1.73 sqM) Glucose 257 H (74-99) mg/dL Calcium 8.7 (8.4-10.2) mg/dL Magnesium 1.8 (1.6-2.3) mg/dL Total Bilirubin 0.4 (0.2-1.3) mg/dL AST 31 (17-59) U/L ALT 35 (4-49) U/L Alkaline Phosphatase 62 (38-126) U/L Troponin I (0.000-0.034) ng/mL Total Protein 6.7 (6.3-8.2) g/dL Albumin 3.9 (3.5-5.0) g/dL 01/23/23 Range/Units 23:39 WBC (3.8-10.6) k/uL RBC (4.30-5.90) m/uL Hgb (13.0-17.5) gm/dL Hct (39.0-53.0) % MCV (80.0-100.0) fL MCH (25.0-35.0) pg MCHC (31.0-37.0) g/dL RDW (11.5-15.5) % Plt Count (150-450) k/uL MPV Neutrophils % % Lymphocytes % % Monocytes % % Eosinophils % % Basophils % % Neutrophils # (1.3-7.7) k/uL Lymphocytes # (1.0-4.8) k/uL Monocytes # (0-1.0) k/uL Eosinophils # (0-0.7) k/uL Basophils # (0-0.2) k/uL PT (9.0-12.0) sec INR (<1.2) APTT (22.0-30.0) sec Sodium (137-145) mmol/L Potassium (3.5-5.1) mmol/L Chloride (98-107) mmol/L Carbon Dioxide (22-30) mmol/L Anion Gap mmol/L BUN (9-20) mg/dL Creatinine (0.66-1.25) mg/dL Est GFR (CKD-EPI)AfAm (>60 ml/min/1.73 sqM) Est GFR (CKD-EPI)NonAf (>60 ml/min/1.73 sqM) Glucose (74-99) mg/dL Calcium (8.4-10.2) mg/dL Magnesium (1.6-2.3) mg/dL Total Bilirubin (0.2-1.3) mg/dL AST (17-59) U/L ALT (4-49) U/L Alkaline Phosphatase (38-126) U/L Troponin I <0.012 (0.000-0.034) ng/mL Total Protein (6.3-8.2) g/dL Albumin (3.5-5.0) g/dL - EKG Data -: EKG Interpreted by Me Interpretation: other Disposition Clinical Impression: Atrial fibrillation with RVR Disposition: ADMITTED IP TO THIS HOSP Condition: Fair Is patient prescribed a controlled substance at d/c from ED?: No
[2023-01-24] MEDS ORDERED: DAPAGLIFLOZIN PROPANEDIOL 10 MG TABLET PO SCH (09:30)
[2023-01-24] MEDS ORDERED: DILTIAZEM CD 120 MG CAP.ER.24H PO SCH (09:30)
[2023-01-24] MEDS ORDERED: METOPROLOL SUCCINATE (ER) 25 MG TAB.ER.24H PO SCH (09:30)
[2023-01-24 10:45] LABS: Glucose,Whole Blood 145 mg/dL (70-110)
--- NOTE | 2023-01-24 12:08 | P.CRDCN ---
History of Present Illness History of present illness: HISTORY OF PRESENT ILLNESS: This is a 72-year-old male with a past medical history significant for hypertension, hyperlipidemia, diabetes, and atrial fibrillation. Patient follows in the office with Dr. Bernardo. We have been asked to see the patient in consultation for atrial fibrillation. Patient examined at the bedside in the emergency room. The patient speaks mainly Marshallese and there is no family present at the time of examination. The patient denied any pain at the time of my examination. The patient was found to be in atrial fibrillation with RVR when he arrived to the hospital. He was started on IV Cardizem. At the time of my examination, the patient remains in atrial fibrillation with controlled ventricular rates. * Chest xray negative for acute process * Laboratory data: WBC 6.0. Hemoglobin 13.8. Platelet count 100. Sodium 135. Potassium 4.0. B UN 36. Creatinine 1.14. Troponin negative 3. * Current home cardiac medications include losartan 50 mg at night, Xarelto 20 mg at night, metoprolol succinate 25 mg daily, Cardizem 120 mg daily, and atorvastatin 40 mg at night. * Most recent echocardiogram obtained in September 2022 revealed ejection fraction 60-65%, mild TR, mild LVH REVIEW OF SYSTEMS: At the time of my exam: Unable to obtain thorough review of systems secondary to language barrier PHYSICAL EXAM: VITAL SIGNS: Reviewed. GENERAL: Well-developed in no acute distress. HEENT: Head is normocephalic. Pupils are equal, round. Sclerae anicteric. Mucous membranes of the mouth are moist. Neck supple. No JVD or thyromegaly LUNGS: Respirations even and unlabored. Lungs essentially clear to auscultation bilaterally. HEART: Irregular rate and rhythm. S1 and S2 heard. ABDOMEN: Soft. Nondistended. Nontender. EXTREMITIES: Normal range of motion. No clubbing or cyanosis. Peripheral pulses intact. No lower extremity edema NEUROLOGIC: Awake and alert. Oriented x 3. ASSESSMENT: Chest pain, troponins negative 3 Persistent atrial fibrillation Hypertension Hyperlipidemia Diabetes PLAN: An acute coronary event has been ruled out Resume home cardiac medications Discontinue IV Cardizem No need to repeat echocardiogram as this was performed in September Further recommendations pending patient's course Nurse practitioner note has been reviewed by physician. Signing provider agrees with the documented findings, assessment, and plan of care. Past Medical History Past Medical History: Coronary Artery Disease (CAD), Diabetes Mellitus History of Any Multi-Drug Resistant Organisms: None Reported Past Surgical History: Orthopedic Surgery Additional Past Surgical History / Comment(s): lt knee, nephrectomy left side Past Anesthesia/Blood Transfusion Reactions: No Reported Reaction Past Psychological History: No Psychological Hx Reported Smoking Status: Never smoker Past Alcohol Use History: None Reported Past Drug Use History: None Reported Medications and Allergies Home Medications Medication Instructions Recorded Confirmed Type Atorvastatin [Lipitor] 40 mg PO HS 10/09/22 01/24/23 History Brimonidine Tartrate [Alphagan P 1 drop BOTH EYES BID 10/09/22 01/24/23 History 0.15% Ophth Soln] Diltiazem Cd [Cardizem CD] 120 mg PO DAILY 10/09/22 01/24/23 History Dorzolamide 2% [Trusopt 2%] 1 drop BOTH EYES BID 10/09/22 01/24/23 History Empagliflozin [Jardiance] 25 mg PO DAILY 10/09/22 01/24/23 History Insulin Aspart [Insulin Aspart 10 unit SQ AC-TID 10/09/22 01/24/23 History Flexpen] Insulin Glargine/Lixisenatide 40 units SQ DAILY 10/09/22 01/24/23 History [Soliqua 100 Unit-33 Mcg/ml Pen] Ketoconazole 2% Cream [Nizoral 2%] 1 applic TOPICAL DAILY PRN 10/09/22 01/24/23 History Latanoprost [Latanoprost 0.005%] 1 drop BOTH EYES HS 10/09/22 01/24/23 History Metoclopramide [Reglan] 5 mg PO HS 10/09/22 01/24/23 History Pantoprazole [Protonix] 40 mg PO HS 10/09/22 01/24/23 History Rivaroxaban [Xarelto] 20 mg PO HS 10/09/22 01/24/23 History Timolol 0.5% Ophth Soln [Timoptic 1 drop BOTH EYES BID 10/09/22 01/24/23 History 0.5% Ophth Soln] metFORMIN HCL 1,000 mg PO DAILY 10/09/22 01/24/23 History traZODone HCL [Desyrel] 50 mg PO HS 10/09/22 01/24/23 History Hydrocortisone Cream 1 applic TOPICAL QID 01/24/23 01/24/23 History [Hydrocortisone 2.5% Cream] Losartan [Cozaar] 50 mg PO HS 01/24/23 01/24/23 History Metoprolol Succinate (ER) [Toprol 25 mg PO DAILY 01/24/23 01/24/23 History Xl] Allergies Allergy/AdvReac Type Severity Reaction Status Date / Time No Known Allergies Allergy Verified 01/24/23 08:40 Physical Exam Vitals: Vital Signs Temp Pulse Resp BP Pulse Ox 01/24/23 11:30 71 11 L 109/70 97 01/24/23 10:00 74 16 121/73 01/24/23 09:00 73 19 127/75 97 01/24/23 08:00 71 10 L 105/65 97 01/24/23 06:49 76 18 103/61 96 01/24/23 05:30 69 19 103/71 96 01/24/23 05:00 67 13 108/66 95 01/24/23 04:31 65 18 103/65 95 01/24/23 04:30 72 15 97/69 95 01/24/23 04:00 66 9 L 102/74 97 01/24/23 03:30 69 14 95/65 95 01/24/23 03:02 67 18 112/67 95 01/24/23 03:00 72 9 L 105/69 96 01/24/23 02:30 80 7 L 88/67 97 01/24/23 02:00 84 9 L 97/64 96 01/24/23 01:09 84 18 97/69 97 01/23/23 23:05 98.2 F 76 18 113/71 97 Intake and Output 01/23/23 01/24/23 01/24/23 22:59 06:59 14:59 Other: Weight 90.718 kg Results 01/23/23 23:39 01/23/23 23:39 Cardiac Enzymes 01/23/23 01/23/23 01/24/23 Range/Units 23:39 23:39 02:50 AST 31 (17-59) U/L Troponin I <0.012 <0.012 (0.000-0.034) ng/mL 01/24/23 Range/Units 05:46 AST (17-59) U/L Troponin I <0.012 (0.000-0.034) ng/mL Coagulation 01/23/23 Range/Units 23:39 PT 12.3 H (9.0-12.0) sec APTT 33.7 H (22.0-30.0) sec CBC 01/23/23 Range/Units 23:39 WBC 6.0 (3.8-10.6) k/uL RBC 4.40 (4.30-5.90) m/uL Hgb 13.8 (13.0-17.5) gm/dL Hct 42.6 (39.0-53.0) % Plt Count 100 L (150-450) k/uL Comprehensive Metabolic Panel 01/23/23 Range/Units 23:39 Sodium 135 L (137-145) mmol/L Potassium 4.0 (3.5-5.1) mmol/L Chloride 105 (98-107) mmol/L Carbon Dioxide 20 L (22-30) mmol/L BUN 36 H (9-20) mg/dL Creatinine 1.14 (0.66-1.25) mg/dL Glucose 257 H (74-99) mg/dL Calcium 8.7 (8.4-10.2) mg/dL AST 31 (17-59) U/L ALT 35 (4-49) U/L Alkaline Phosphatase 62 (38-126) U/L Total Protein 6.7 (6.3-8.2) g/dL Albumin 3.9 (3.5-5.0) g/dL Current Medications Generic Name Dose Route Start Last Admin Trade Name Freq PRN Reason Stop Dose Admin Atorvastatin Calcium 40 mg 01/24/23 21:00 Atorvastatin 40 Mg Tab PO HS VISH Dapagliflozin 10 mg 01/24/23 09:30 01/24/23 10:39 Dapagliflozin Propanediol 10 Mg Tablet PO 10 mg DAILY VISH Administration Diltiazem HCl 120 mg 01/24/23 09:30 01/24/23 10:39 Diltiazem Cd 120 Mg Cap.Er.24h PO 120 mg DAILY VISH Administration Sodium Chloride 1,000 mls @ 20 mls/hr 01/24/23 00:45 01/24/23 01:18 Saline 0.9% IV 20 mls/hr .Q24H VISH Administration Losartan Potassium 50 mg 01/24/23 21:00 Losartan 50 Mg Tab PO HS VISH Metoprolol Succinate 25 mg 01/24/23 09:30 01/24/23 10:39 Metoprolol Succinate (Er) 25 Mg Tab.Er.24h PO 25 mg DAILY VISH Administration Nitroglycerin 0.4 mg 01/24/23 00:44 Nitroglycerin Sl Tabs 0.4 Mg Tab SUBLINGUAL Q5M PRN Chest Pain Rivaroxaban 20 mg 01/24/23 21:00 Rivaroxaban 20 Mg Tab PO HS [facility] Protocol Intake and Output 01/23/23 01/24/23 01/24/23 22:59 06:59 14:59 Other: Weight 90.718 kg 01/23/23 23:39 01/23/23 23:39
[2023-01-24 17:14] VITALS: BP 106/64; PULSE 56; RESP 12
[2023-01-24] MEDS ORDERED: LOSARTAN 50 MG TAB PO SCH (21:00)
[2023-01-24] MEDS ORDERED: ATORVASTATIN 40 MG TAB PO SCH (21:00)
[2023-01-24] MEDS ORDERED: RIVAROXABAN 20 MG TAB PO SCH (21:00)
[2023-01-25] MEDS ORDERED: ASPIRIN 325 MG TAB PO SCH (09:00)
--- NOTE | 2023-01-25 23:21 | HP ---
HISTORY AND PHYSICAL CHIEF COMPLAINT: Dizziness and lightheadedness. HISTORY OF PRESENT ILLNESS: This is another admission for this 72-year-old white male. He has been having problems with lightheaded and dizziness on and off for a year or two. He has had once numerous workups without an obvious etiology. His blood pressure has been elevated, but been under good control. He is also diabetic. He has had cerebrovascular workup. He came into the emergency room this time where he was found to be in new onset atrial fibrillation with a rapid ventricular response. REVIEW OF SYSTEMS: He denies focal neurologic deficits, syncope, chest pain, nausea, vomiting, abdominal pain, etc. Past medical history, family history, and personal and social histories are otherwise noncontributory, unchanged from his previous admitting and discharge summaries, etc. He has not been able to take Jardiance due to swelling. MEDICATIONS: He is on, 1. Metformin. 2. Xarelto. 3. Atorvastatin. 4. NovoLog. 5. Metoclopramide. 6. Eyedrops for glaucoma. 7. Trazodone. 8. Pantoprazole. SOCIAL HISTORY: He has never smoked. PHYSICAL EXAMINATION: VITAL SIGNS: Pulse is 130, and blood pressure is 108/60, respirations 16. GENERAL: He appeared to be well developed, well nourished, in no acute distress. SKIN: Color is normal. Skin is warm and dry. LYMPHATICS: Lymph nodes are not enlarged. HEAD, EARS, EYES, NOSE, MOUTH AND THROAT: Normal. NECK: Neck veins are not distended. Carotids normal. CHEST: Clear. CARDIAC: Demonstrated rapid heart rate. ABDOMEN: Soft and nontender. EXTREMITIES: Normal. NEUROLOGICAL: Intact. ASSESSMENT: He is admitted to the hospital with diagnosis of: 1. New onset atrial fibrillation. 2. History of hypertension. 3. Type 2 [id number] diabetes mellitus. PLAN: 1. Bedrest. 2. IV fluids. 3. Serial EKGs and enzymes. 4. Echocardiogram. 5. Cardiology consult. MMODL / IJN: [id number] /
--- NOTE | 2023-01-25 23:27 | DS ---
DISCHARGE SUMMARY CHIEF COMPLAINT: Dizziness, lightheadedness, and atrial fibrillation. HISTORY OF PRESENT ILLNESS AND PHYSICAL EXAMINATION: Details of this man's history and physical can be found in the initial workup. LABORATORY STUDIES: While he was in the hospital, he had laboratory studies, details of which can be found in the laboratory section of his chart. COURSE IN THE HOSPITAL: After admission, he was placed on bedrest and started on intravenous fluids and Cardizem. He was to be seen by Cardiology and then he signed himself out against medical advice. FINAL DIAGNOSES: 1. New onset atrial fibrillation with rapid ventricular response. 2. History of hypertension. 3. Type 2 diabetes mellitus. OPERATIONS: None. CONSULTATIONS: None. He is not improved. He signed out AMA. MMJOSE / BLANCHEN: [id number] /
== END 2023-01-24 18:49 | disposition left against medical advice (07) | DRG 310 ==
LOC: EC 23:01 → 3SCARD 01-24 00:44 → 4SSUR 01-24 11:24
PROVIDERS: ADMIT Family Medicine; ATTEND Family Medicine
DX: I48.19 Other persistent atrial fibrillation (principal); E78.5 Hyperlipidemia, unspecified; E11.9 Type 2 diabetes mellitus without complications; I10 Essential (primary) hypertension; Z79.4 Long term (current) use of insulin; Z79.84 Long term (current) use of oral hypoglycemic drugs; Z79.899 Other long term (current) drug therapy; Z90.5 Acquired absence of kidney; Z79.01 Long term (current) use of anticoagulants; R07.9 Chest pain, unspecified
CPT/HCPCS: 36415; 71045; 80053; 83735; 84484; 85025; 85610; 85730; 93005

== ENCOUNTER → 2023-01-26 | Outpatient (CLI) | payer MEDICARE ==
--- NOTE | 2023-01-26 23:12 | MR ---
EXAMINATION TYPE: MR brain wo/w con DATE OF EXAM: 01/26/2023 COMPARISON: CT 10/09/2022 HISTORY: 72-year-old male R42,R51.9,I10, Dizziness, light headed, pressure in head. TECHNIQUE: Multiplanar, multisequence images of the brain and brainstem were acquired before and aft er administration of 9 mL IV Gadavist. Diffusion weighted imaging is performed. FINDINGS: No evidence for acute infarction, hemorrhage, mass, mass effect, midline shift, herniation, effacemen t of basal cisterns, or extra-axial fluid collection. The ventricles and sulci are age-appropriate. Major intracranial flow voids are intact. T2/FLAIR weighted sequences show trace scattered foci of bright white matter change in the subcortica l and deep white matter regions of both hemispheres numbering less than 5 mm on either side. Midline structures demonstrate normal morphology. The craniocervical junction is normal. There appears to be a developmental venous anomaly extending along the midline celestine. Otherwise, post contrast images demonstrate no evidence of pathologic enhancement. Dural venous sinuses are patent. Moderate mucosal thickening ethmoid air cells. Globes are intact. IMPRESSION: 1. No acute intracranial abnormality seen. 2. Nonspecific T2 bright white matter change in both cerebral hemispheres, typical of trace burden of chronic small vessel ischemic disease. 3. 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 4. Moderate chronic ethmoid sinus disease.
== END | disposition home or self-care (01) ==
LOC: RADMRIMAIN 15:23
PROVIDERS: ATTEND Family Medicine
DX: J32.2 Chronic ethmoidal sinusitis (principal); R90.82 White matter disease, unspecified; R51.9 Headache, unspecified; R42 Dizziness and giddiness; I10 Essential (primary) hypertension; I67.82 Cerebral ischemia
CPT/HCPCS: 70553; A9585

== ENCOUNTER → 2023-01-27 | Outpatient (CLI) | payer MEDICARE ==
--- NOTE | 2023-03-01 12:53 | EM ---
EVENT MONITOR This is a 30-day event monitor. INDICATION: Dizziness. This event monitor shows sinus rhythm with episodes of sinus bradycardia and rare PACs. There were no episodes of sustained ventricular or supraventricular tachyarrhythmias. There were no episodes of more than 2-second pauses. CONCLUSION: This is a 30-day event monitor shows sinus rhythm without significant tachy or bradyarrhythmias. MMODL / IJN: [id number] /
== END | disposition home or self-care (01) ==
LOC: RADECHMAIN 11:41
PROVIDERS: ATTEND Family Medicine
DX: I10 Essential (primary) hypertension (principal); R42 Dizziness and giddiness; R51.9 Headache, unspecified
CPT/HCPCS: 93270